=== PATIENT | male | born 1960 | race Caucasian/White ===

== ENCOUNTER 2017-10-04 22:38 | Inpatient (IN) | payer MEDICAID, OTHER ==
[~2017-10-04] VITALS: Ht 180.3 cm; Wt 104.3 kg
[2017-10-04 23:52] LABS: Basophils # (auto) 0.1 uL; Basophils % (auto) 1.4 % (0.0-2.0); Eosinophils # (auto) 0.3 uL; Eosinophils % (auto) 3.7 % (0.0-7.0); Hematocrit 40.3 % (41.0-53.0); Lymphocytes # (auto) 1.6 uL; Lymphocytes % (auto) 18.3 % (10.0-50.0); Mean Corpuscular Hemoglobin 30.6 pg (28.0-32.0); Mean Corpuscular Hgb Conc. 34.7 g/dL (32.0-36.0); Mean Corpuscular Volume 88.1 fL (80.0-100.0); Monocytes # (auto) 0.5 uL; Monocytes % (auto) 5.3 % (0.0-12.0); Neutrophils # (auto) 6.2 uL; Neutrophils % (auto) 71.3 % (37.0-80.0); Nucleated Red Blood Cells % 0.1 %; Platelet Count (auto) 203 10^3/uL (140-450); Red Blood Cells 4.58 10^6/uL (4.5-5.90); Red Cell Distribution Width 13.6 % (11.8-14.3); White Blood Cell 8.7 10^3/uL (4.4-10.8)
[2017-10-05 00:08] LABS: Albumin 3.9 g/dL (3.4-5.0); Calcium 9.1 mg/dL (8.5-10.1); Potassium 3.2 mmol/L (3.5-5.1)
[2017-10-05 00:10] LABS: Bilirubin, Total 0.5 mg/dL (0.2-1.0); Total Protein 7.7 g/dL (6.4-8.2)
[2017-10-05 00:19] LABS: BUN/Creatinine Ratio 15.3
[2017-10-05] MEDS ORDERED: SODIUM CHLORIDE 0.9% 2,000 ML IV ONE (03:15)
[2017-10-05] MEDS ORDERED: InsuLIN REG 1unit/0.01ml Soln (100units/ml) IV ONE (03:15)
[2017-10-05] MEDS ORDERED: MORPHINE SULFATE 4 MG/ML SYR/VIAL IV PRN (04:00)
[2017-10-05] MEDS ORDERED: ACETAMINOPHEN 325 MG TAB PO PRN (04:00)
[2017-10-05] MEDS ORDERED: SODIUM CHLORIDE 0.9% 1,000 ML IV SCH (04:00)
[2017-10-05] MEDS ORDERED: ONDANSETRON HCL 4 MG/2 ML VIAL IV PRN (04:00)
[2017-10-05] MEDS ORDERED: cloNIDine HCL 0.1 MG TAB PO PRN (04:00)
[2017-10-05] MEDS ORDERED: POTASSIUM CHL 20 Meq TABLET PO ONE ×2 (04:00→12:00)
[2017-10-05] MEDS ORDERED: NITROGLYCERIN 0.4 MG SL TAB SL PRN (04:00)
[2017-10-05] MEDS ORDERED: TEMAZEPAM 15 MG CAP PO PRN (04:00)
[2017-10-05] MEDS ORDERED: DEXTROSE (50%) 50ML SYRG IV PRN (04:00)
[2017-10-05] MEDS: ACCU-CHEK COMFORT CURVE STRIP VI SCH ×6 (05:09→23:48)
[2017-10-05] MEDS: InsuLIN REG 1unit/0.01ml Soln (100units/ml) SC SCH ×6 (05:44→23:51)
[2017-10-05 05:50] VITALS: BP 168/97
[2017-10-05] MEDS: HYDROcodone-ACET 5/325MG TAB PO PRN ×2 (06:39→12:52)
[2017-10-05 06:47] LABS: Albumin 3.6 g/dL (3.4-5.0); BUN/Creatinine Ratio 13.2; Bilirubin, Total 0.4 mg/dL (0.2-1.0); Calcium 8.5 mg/dL (8.5-10.1); Total Protein 7.2 g/dL (6.4-8.2)
[2017-10-05 07:06] LABS: Potassium 2.9 mmol/L (3.5-5.1)
[2017-10-05 07:30] VITALS: BP 138/83
[2017-10-05 09:00] VITALS: BP 138/83
[2017-10-05] MEDS ORDERED: PNEUMOCOCCAL VACC POLYS 25 MCG/0.5 ML VIAL IM ONE ×2 (09:45→10:15)
[2017-10-05] MEDS ORDERED: IBUP800T24 PO (10:05)
[2017-10-05] MEDS ORDERED: GABA-339 PO (10:05)
[2017-10-05] MEDS ORDERED: ASPI81CH43 PO (10:05)
[2017-10-05] MEDS ORDERED: INSLANTI SC (10:05)
[2017-10-05] MEDS ORDERED: HYDR-4683 PO (10:05)
[2017-10-05] MEDS ORDERED: INSLISPI SC (10:05)
[2017-10-05] MEDS ORDERED: LOSARTAN POTASSIUM 25 MG TAB PO ONE (12:00)
[2017-10-05] MEDS: ENOXAPARIN SOD 40 MG/0.4 ML SYRINGE SC SCH (12:23)
[2017-10-05 13:00] VITALS: BP 143/83
[2017-10-05] MEDS: GABAPENTIN 300 MG CAP PO SCH ×2 (16:43→21:39)
[2017-10-05 17:00] VITALS: BP 144/80
[2017-10-05 21:03] LABS: Urine Bacteria NONE SEEN /hpf (None Seen); Urine Blood Negative /uL (Negative); Urine Specific Gravity 1.013 (1.001-1.035); Urine WBC <1 /hpf (0 - 3)
[2017-10-05 21:23] LABS: Alcohol, Urine < 3.0 mg/dL (0-5); Amphetamine Screen, Urine POSITIVE (NEGATIVE); Barbiturate Scree,Urine NEGATIVE (NEGATIVE); Benzodiazephine Screen, Urine NEGATIVE (NEGATIVE); Cannabinoid Screen, Urine POSITIVE (NEGATIVE); Cocaine Screen, Urine NEGATIVE (NEGATIVE); Opiate Scree,Urine POSITIVE (NEGATIVE); Phencyclidine Screen, Urine NEGATIVE (NEGATIVE)
[2017-10-05] MEDS: INSULIN LANTUS (GLARGINE) 1 /0.01ml (100units/ml) SC SCH (21:41)
[2017-10-05 22:00] VITALS: BP 124/77
[2017-10-06] MEDS: InsuLIN REG 1unit/0.01ml Soln (100units/ml) SC SCH ×3 (04:00→11:49)
[2017-10-06] MEDS: ACCU-CHEK COMFORT CURVE STRIP VI SCH ×3 (04:15→11:48)
[2017-10-06 05:00] VITALS: BP 134/75
[2017-10-06 05:38] LABS: Basophils # (auto) 0.1 uL; Basophils % (auto) 0.9 % (0.0-2.0); Eosinophils # (auto) 0.6 uL; Eosinophils % (auto) 5.8 % (0.0-7.0); Hematocrit 40.4 % (41.0-53.0); Hemoglobin 14.1 g/dL (13.5-17.5); Lymphocytes # (auto) 2.9 uL; Lymphocytes % (auto) 27.8 % (10.0-50.0); Mean Corpuscular Hemoglobin 30.7 pg (28.0-32.0); Mean Corpuscular Hgb Conc. 34.9 g/dL (32.0-36.0); Monocytes # (auto) 0.7 uL; Monocytes % (auto) 6.7 % (0.0-12.0); Neutrophils # (auto) 6.1 uL; Neutrophils % (auto) 58.8 % (37.0-80.0); Nucleated Red Blood Cells % 0.1 %; Platelet Count (auto) 241 10^3/uL (140-450); Red Blood Cells 4.58 10^6/uL (4.5-5.90); Red Cell Distribution Width 13.7 % (11.8-14.3); White Blood Cell 10.4 10^3/uL (4.4-10.8)
[2017-10-06 05:53] LABS: Potassium 3.2 mmol/L (3.5-5.1)
[2017-10-06 05:57] LABS: Albumin 3.3 g/dL (3.4-5.0); BUN/Creatinine Ratio 14.5; Bilirubin, Total 0.3 mg/dL (0.2-1.0); Calcium 9.1 mg/dL (8.5-10.1); Total Protein 6.5 g/dL (6.4-8.2)
[2017-10-06] MEDS: GABAPENTIN 300 MG CAP PO SCH (06:27)
[2017-10-06] MEDS: INSULIN LANTUS (GLARGINE) 1 /0.01ml (100units/ml) SC SCH (06:30)
[2017-10-06 07:30] VITALS: BP 146/78
[2017-10-06] MEDS ORDERED: LOS25T PO (08:58)
[2017-10-06 09:00] VITALS: BP 146/78
[2017-10-06] MEDS ORDERED: POTASSIUM CHL 20 Meq TABLET PO ONE (09:00)
[2017-10-06] MEDS ORDERED: ASPirin-EC 81 mg tab PO SCH (10:00)
[2017-10-06] MEDS ORDERED: LOSARTAN POTASSIUM 25 MG TAB PO SCH (10:00)
[2017-10-06] MEDS: ENOXAPARIN SOD 40 MG/0.4 ML SYRINGE SC SCH (10:07)
[2017-10-06] MEDS: HYDROcodone-ACET 5/325MG TAB PO PRN (10:26)
[2017-10-06 10:54] VITALS: BP 146/79
[2017-10-06 12:21] VITALS: BP 175/85
== END 2017-10-06 13:40 | disposition home or self-care (01) | DRG 469 ==
LOC: ER 22:38 → TELE 22:39 → TELE-WESTW 10-05 05:50 → WEST WING 10-05 23:57
PROVIDERS: ADMIT Nurse Practitioner; ATTEND Internal Medicine
DX: N17.9 Acute kidney failure, unspecified (principal); E11.40 Type 2 diabetes mellitus with diabetic neuropathy, unspecified; E11.65 Type 2 diabetes mellitus with hyperglycemia; I10 Essential (primary) hypertension; E87.6 Hypokalemia; E87.1 Hypo-osmolality and hyponatremia; E86.0 Dehydration; Z79.4 Long term (current) use of insulin; Z91.19 Patient's noncompliance with other medical treatment and regimen; F15.90 Other stimulant use, unspecified, uncomplicated; F12.90 Cannabis use, unspecified, uncomplicated; E66.9 Obesity, unspecified; Z23 Encounter for immunization
CPT/HCPCS: 36415; 71045; 80053; 80307; 81001; 82010; 82140; 82962; 83036; 84484; 85025; 93005; 96361; 96374; J1815; J2405

== ENCOUNTER 2019-10-20 10:35 | Inpatient (IN) | payer MEDICAID ==
[~2019-10-20] VITALS: Ht 177.8 cm; Wt 110.0 kg
[~2019-10-20 10:35] MED LIST: ASPI81CH43 PO; GABA-339 PO; HYDR-4833 PO; INSLANTI SC; INSLISPI SC; LOS25T PO
[2019-10-20 11:05] LABS: Basophils # (auto) 0.1 10 ^3/uL (0-0.2); Basophils % (auto) 0.7 % (0.0-2.0); Eosinophils # (auto) 0.3 10 ^3/uL (0-0.8); Eosinophils % (auto) 3.1 % (0.0-7.0); Hematocrit 35.1 % (41.0-53.0); Hemoglobin 12.2 g/dL (13.5-17.5); Lymphocytes # (auto) 1.2 10 ^3/uL (0.4-5.4); Lymphocytes % (auto) 10.9 % (10.0-50.0); Mean Corpuscular Hemoglobin 30.9 pg (28.0-32.0); Mean Corpuscular Hgb Conc. 34.7 g/dL (32.0-36.0); Mean Corpuscular Volume 88.8 fL (80.0-100.0); Monocytes # (auto) 0.8 10 ^3/uL (0-1.3); Monocytes % (auto) 7.1 % (0.0-12.0); Neutrophils # (auto) 8.3 10 ^3/uL (1.6-8.6); Neutrophils % (auto) 78.2 % (37.0-80.0); Nucleated Red Blood Cells % 0.1 %; Platelet Count (auto) 150 10^3/uL (140-450); Red Blood Cells 3.95 10^6/uL (4.5-5.90); Red Cell Distribution Width 14.1 % (11.8-14.3); White Blood Cell 10.6 10^3/uL (4.4-10.8)
[2019-10-20 11:20] LABS: INR 0.99 (0.9-1.15); Partial Thromboplastin Time 31.9 sec (23.64-32.05)
[2019-10-20 11:25] LABS: Albumin 3.1 g/dL (3.4-5.0); Calcium 7.9 mg/dL (8.5-10.1); Potassium 3.7 mmol/L (3.5-5.1)
[2019-10-20] MEDS ORDERED: ASPirin 81 mg TAB PO ONE (11:30)
[2019-10-20] MEDS ORDERED: cefTRIAXone W LIDOCAINE 1 GM IM IM ONE (11:30)
[2019-10-20 11:31] LABS: Bilirubin, Total 0.6 mg/dL (0.2-1.0); Total Protein 6.8 g/dL (6.4-8.2)
[2019-10-20] MEDS ORDERED: cefTRIAXone 1GM/50ML D5W 50 ML IV ONE (11:45)
[2019-10-20] MEDS ORDERED: ENOXAPARIN SOD 100 MG/1 ML SYRINGE SC ONE (13:00)
[2019-10-20] MEDS ORDERED: ASCORBIC ACID 500 MG TAB PO ONE (13:00)
[2019-10-20] MEDS ORDERED: ZINC SULFATE 220mg CAP or TAB PO ONE (13:00)
[2019-10-20] MEDS ORDERED: ACETAMINOPHEN 325 MG TAB PO ONE ×2 (13:18→13:30)
[2019-10-20 14:10] LABS: Urine Bacteria NONE SEEN /hpf (None Seen); Urine Blood 1+ /uL (Negative); Urine WBC <1 /hpf (0 - 3)
[2019-10-20] MEDS ORDERED: PROMETHAZINE HCL 25 MG/ML 1ML IV PRN (14:30)
[2019-10-20] MEDS ORDERED: LACTULOSE 20Gm/30ML SOLN PO PRN ×2 (14:30)
[2019-10-20] MEDS ORDERED: ALBUTEROL SULF 2.5 MG/0.5ML(0.5%) NEB SOLN NEB PRN (14:30)
[2019-10-20] MEDS ORDERED: NITROGLYCERIN 0.4 MG SL TAB SL PRN (14:30)
[2019-10-20] MEDS ORDERED: MORPHINE SULF INJ 2 MG/ML SYRINGE 1ML IV PRN (14:30)
[2019-10-20] MEDS ORDERED: TEMAZEPAM 15 MG CAP PO PRN (14:30)
[2019-10-20 14:45] VITALS: BP 162/90
--- NOTE | 2019-10-20 14:45 | NUR ---
Respiratory note: PT IS AWAKE, ALERT, AND ORIENTED. NO RESPIRATORY DISTRESS NOTED. SPO2 99% ON 2L NC, HR 84, RR 20, BP 162/90, BS CLEAR/DIMINISHED BILATERALLY. PRN MEDNEB TX NOT INDICATED AT THIS TIME. PT INFORMED TO PUSH CALL BUTTON, OR INFORM RN IF INCREASED WOB, SOB, WHEEZING OCCURS.
[2019-10-20 15:04] LABS: Alcohol, Urine < 3.0 mg/dL (0-5); Amphetamine Screen, Urine NEGATIVE (NEGATIVE); Barbiturate Scree,Urine NEGATIVE (NEGATIVE); Benzodiazephine Screen, Urine NEGATIVE (NEGATIVE); Cannabinoid Screen, Urine NEGATIVE (NEGATIVE); Cocaine Screen, Urine NEGATIVE (NEGATIVE); Opiate Scree,Urine NEGATIVE (NEGATIVE); Phencyclidine Screen, Urine NEGATIVE (NEGATIVE)
--- NOTE | 2019-10-20 16:00 | NUR ---
Telemetry admit from ER KOTACHELSI admitted to Telemetry unit after SBAR received. Patient oriented to LORRIE DAY RN primary RN, unit, room, bed, and unit policies regarding patient care and visiting hours. Patient now on continuous telemetry monitoring, tele box # 61 and telemetry reading on arrival to unit is SR. Patient placed on bedside oxygen, weighed by bedscale and encouraged to call if they need something. All questions and concerns addressed, patient verbalized understanding.
--- NOTE | 2019-10-20 16:46 | NUR ---
PAGED RE: PENDING CT ANGIO OF CHEST WITH CONTRAST. PER RADIOLOGY THE PATIENTS RENAL LABS ARE NOT AT THE CORRECT LEVEL FOR THE TEST TO BE COMPLETED. RADIOLOGY WAS ASKING IF THE MD WOULD LIKE TO CONTINUE MD TRUJILLO'S TREATMENT OF HYDRATING THE PATIENT AND THE REDRAWING THE LABS. AWAITING CALL BACK
[2019-10-20 17:00] VITALS: BP 159/93
[2019-10-20] MEDS: FUROSEMIDE 20 MG/2 ML VIAL IV SCH (17:05)
--- NOTE | 2019-10-20 19:00 | NUR ---
PT ASSESSED, NO SOB NOTED. BS DIMINISHED BILATERALLY, PT KNOWS ABOUT PRN TX IF NEEDED
--- NOTE | 2019-10-20 19:52 | NUR ---
pt c/o of pain at posterior right shoulder, radiating to his chest. EKG performed. abnormal result found (PVCS). Will present result to hospitalist Lv for verification and further orders.
--- NOTE | 2019-10-20 20:02 | NUR ---
hospitalist orders hospitalist informed of abnormal EKG and HTN 177/78, NEW ORDERS RECEIVED. --hydralazine PO 50 mg PRN TID for SBP >160. orders received read back and verified.
[2019-10-20] MEDS: traMADol HCL 50 MG TAB PO PRN (20:15)
[2019-10-20] MEDS ORDERED: hydrALAZINE HCL 25 MG TAB PO PRN (20:30)
[2019-10-20 21:56] VITALS: BP 158/75
--- NOTE | 2019-10-20 22:13 | NUR ---
hospitalist RIGOBERTO new orders received for more effective pain medication. morphine sulfate 2mg IV Q4 prn. orders read back and verified.
--- NOTE | 2019-10-20 22:13 | NUR ---
Hospitalist (Lv) informed Dr. Awan of pts history of diabetes. new orders received --insulin moderate sliding scale Q4 accuchecks. orders read back and verified.
[2019-10-20] MEDS ORDERED: DEXTROSE (50%) 50ML SYRG IV PRN (22:15)
[2019-10-20] MEDS: CARVEDILOL 3.125 MG TAB PO SCH (22:18)
[2019-10-20] MEDS: ATORVASTATIN 20 MG TAB PO SCH (22:19)
[2019-10-20] MEDS: ENOXAPARIN SOD 100 MG/1 ML SYRINGE SC SCH (22:19)
[2019-10-21] MEDS: ACCU-CHEK COMFORT CURVE STRIP VI SCH ×7 (00:25→21:38)
[2019-10-21] MEDS: InsuLIN REG 1unit/0.01ml Soln (100units/ml) SC SCH ×6 (00:26→21:37)
[2019-10-21] MEDS: MORPHINE SULF INJ 2 MG/ML SYRINGE 1ML IV PRN ×3 (03:52→21:31)
[2019-10-21] MEDS: FUROSEMIDE 20 MG/2 ML VIAL IV SCH ×2 (05:23→17:35)
[2019-10-21 05:39] VITALS: BP 147/73
--- NOTE | 2019-10-21 06:15 | NUR ---
PAIN pt c/o pain at posterior right shoulder, 04/11, pt will be medicated appropriately. Addendum: 10/21/19 at 0617 by Sweetie Telles RN note should be time stamped for 0614
--- NOTE | 2019-10-21 06:21 | NUR ---
Respiratory note: PT FOUND ON 3 LPM NC. DECREASED TO 2 LPM. PT TOLERATED WELL. SP02 AFTER CHANGE 98%. PT AWAKE ALERT AND RESPONSIVE. B/S ARE DIMINISHED. NO TREATMENT INDICATED AT THIS TIME.
[2019-10-21 06:40] LABS: Albumin 2.8 g/dL (3.4-5.0); Potassium 3.6 mmol/L (3.5-5.1)
[2019-10-21 06:43] LABS: BUN/Creatinine Ratio 18.7; Bilirubin, Total 0.5 mg/dL (0.2-1.0); Total Protein 6.2 g/dL (6.4-8.2)
--- NOTE | 2019-10-21 06:56 | NUR ---
closing note pt resting in left lateral position with eyes closed. respirations even and nonlabored on 2 liters ns. bed in low locked postion, call light within reach.
--- NOTE | 2019-10-21 07:30 | NUR ---
OPENING NOTE ASSUMED CARE OF PT. AWAKE AND ALERT. NO S/S OF SOB/DISTRESS. BED SET TO LOWEST POSITION/LOCKED. RAILS UP X2. CALL LIGHT WITHIN REACH. WILL CONTINUE TO MONITOR Q1HR AND PRN.
[2019-10-21] MEDS ORDERED: ADENOSINE 90 MG in GIVE UN-DILUTED 0 ML IV STA (08:21)
[2019-10-21] MEDS: ACETAMINOPHEN 500 MG TAB PO PRN ×2 (08:39→21:31)
[2019-10-21 09:00] VITALS: BP 139/64
--- NOTE | 2019-10-21 10:15 | NUR ---
Assumed care of patient. Verbal report received from JEANNETTE Smith. Patient is currently off the floor to Radiology for Adenosine stress test.
[2019-10-21 10:34] VITALS: BP 141/78
--- NOTE | 2019-10-21 11:05 | NUR ---
Returned from radiology via wheelchair. Patient is awake, alert and oriented X. No signs or symptoms of discomfort, shortness of breath, patient complains of low back pain, 8/10. Informed will medicate with prescribed pain medication, verbalized understanding. Tele# 61, sinus rhythm @ 81 bpm. IV X2, right forearm and right right hand, both 20 gauge, patent and saline locked. Plan of care discussed with patient, verbalized understanding. Bed locked, in lowest position, call light within reach, will continue to monitor Q 1 hour and PRN.
[2019-10-21] MEDS ORDERED: MAGNESIUM SULFATE 1GM/100ML 100 ML IV ONE ×2 (12:00→12:15)
[2019-10-21] MEDS ORDERED: FUROSEMIDE 20 MG/2 ML VIAL IV ONE (12:00)
[2019-10-21] MEDS: NICOTINE 14 MG/24HR TOPICAL PATCH TD ONE ×2 (12:00→13:25)
--- NOTE | 2019-10-21 12:00 | NUR ---
CARDIOLOGY Brian Alfredo at bedside Cardiology consult. New orders received and followed through. Patient updated on plan of care, verbalized understanding.
--- NOTE | 2019-10-21 12:15 | NUR ---
ROUNDS Dr Mahoney at bedside for rounds, new orders received and followed through. Patient updated on plan of care, verbalized understanding.
[2019-10-21 12:26] LABS: Cholesterol 111 mg/dL (< 200); Triglycerides 143 mg/dL (< 150)
[2019-10-21 12:28] LABS: HDL Cholesterol 25 mg/dL (40-59); LDL Cholesterol 62 mg/dL (< 100)
[2019-10-21] MEDS: ASPirin 81 mg TAB PO SCH (12:57)
[2019-10-21] MEDS: levoFLOXacin 500MG 100 ML IV SCH (12:57)
[2019-10-21] MEDS: CARVEDILOL 3.125 MG TAB PO SCH ×2 (12:58→21:32)
[2019-10-21] MEDS: POTASSIUM CHL 20 Meq TABLET PO SCH (12:58)
[2019-10-21] MEDS: ENOXAPARIN SOD 100 MG/1 ML SYRINGE SC SCH ×2 (12:59→21:30)
[2019-10-21] MEDS: ENALAPRIL MALEATE 2.5 MG TAB PO SCH (12:59)
[2019-10-21 13:00] VITALS: BP 144/86
[2019-10-21] MEDS: NITROGLYCERIN 0.2MG/HR TOPICAL PATCH TD SCH (13:00)
[2019-10-21 14:26] LABS: Free T3 3.25 pg/mL (2.3-4.2); Free T4 (Free Thyroxine) 1.06 ng/dL (0.89-1.76)
[2019-10-21] MEDS ORDERED: INSU1INJ19 SC (15:51)
[2019-10-21] MEDS ORDERED: DOXA1TAB50 PO (15:52)
[2019-10-21] MEDS ORDERED: IBUP800T24 PO (15:52)
[2019-10-21] MEDS ORDERED: AMIT50TA3 PO (15:53)
[2019-10-21] MEDS ORDERED: HYDR25TA4 PO (15:53)
[2019-10-21] MEDS ORDERED: ALOG1TAB2 PO (15:55)
[2019-10-21] MEDS ORDERED: ATOR20TA50 PO (15:56)
[2019-10-21 17:00] VITALS: BP 156/76
[2019-10-21] MEDS: Glucerna Carbsteady SHAKE Vanilla 8oz PO SCH (17:35)
[2019-10-21] MEDS: traMADol HCL 50 MG TAB PO PRN (17:56)
[2019-10-21] MEDS ORDERED: FUROSEMIDE 40 MG/4 ML VIAL IV SCH (18:00)
--- NOTE | 2019-10-21 19:25 | NUR ---
Care endorsed to JEANNETTE Castillo, night nurse.
--- NOTE | 2019-10-21 20:25 | NUR ---
Opening Shift Note Assumed care of patient from Josefina MACHADO. Patient sleeping, arousable to name. No S/S of distress/SOB or pain. Instructed on POC and to call for assist PRN. Call light in reach, bed in lowest position and locked, will continue to monitor for changes Q1hr and PRN. Addendum: 10/21/19 at 2027 by QUINN PICKENS RN RN Amend time for 1929
[2019-10-21] MEDS: ATORVASTATIN 20 MG TAB PO SCH (21:31)
[2019-10-21 21:59] VITALS: BP 142/61
--- NOTE | 2019-10-22 04:43 | NUR ---
RT NOTE: PT ASSESSED FOR PRN TX. B/S DIMINISHED. PT ON RA. SP02 96%, HR 70. NO SOB OR DISTRESS NOTED. NO TX INDICATED.
[2019-10-22 05:19] VITALS: BP 125/64
[2019-10-22] MEDS: FUROSEMIDE 20 MG/2 ML VIAL IV SCH ×2 (06:08→17:33)
[2019-10-22] MEDS: ACCU-CHEK COMFORT CURVE STRIP VI SCH ×4 (06:15→21:38)
[2019-10-22] MEDS: InsuLIN REG 1unit/0.01ml Soln (100units/ml) SC SCH ×4 (06:15→21:53)
[2019-10-22 06:27] LABS: Basophils # (auto) 0 10 ^3/uL (0-0.2); Basophils % (auto) 0.6 % (0.0-2.0); Eosinophils # (auto) 0.5 10 ^3/uL (0-0.8); Eosinophils % (auto) 6.5 % (0.0-7.0); Hematocrit 32.8 % (41.0-53.0); Hemoglobin 11.8 g/dL (13.5-17.5); Lymphocytes % (auto) 25.9 % (10.0-50.0); Mean Corpuscular Hemoglobin 31.4 pg (28.0-32.0); Mean Corpuscular Hgb Conc. 36.1 g/dL (32.0-36.0); Mean Corpuscular Volume 87.1 fL (80.0-100.0); Monocytes # (auto) 0.9 10 ^3/uL (0-1.3); Monocytes % (auto) 11.1 % (0.0-12.0); Neutrophils # (auto) 4.3 10 ^3/uL (1.6-8.6); Neutrophils % (auto) 55.9 % (37.0-80.0); Nucleated Red Blood Cells % 0.1 %; Platelet Count (auto) 159 10^3/uL (140-450); Red Blood Cells 3.76 10^6/uL (4.5-5.90); Red Cell Distribution Width 13.3 % (11.8-14.3); White Blood Cell 7.7 10^3/uL (4.4-10.8)
[2019-10-22 06:38] LABS: Potassium 3.7 mmol/L (3.5-5.1)
[2019-10-22 06:51] LABS: BUN/Creatinine Ratio 19.8; Calcium 8.3 mg/dL (8.5-10.1)
--- NOTE | 2019-10-22 07:26 | NUR ---
Care endorsed to day shift Josefina MACHADO
--- NOTE | 2019-10-22 08:00 | NUR ---
Opening Shift Note Assumed care of patient, awake, alert and oriented. No S/S of distress/SOB or pain. Instructed on POC and to call for assist PRN,. Bed locked, in lowest position, call light within reach. Will continue to monitor for changes Q1hr and PRN.
[2019-10-22] MEDS: MORPHINE SULF INJ 2 MG/ML SYRINGE 1ML IV PRN ×2 (09:00→21:40)
--- NOTE | 2019-10-22 09:00 | NUR ---
Patient complaining of pain 8/10 on pain scale. Gave morphine 2mg. Will continue to monitor.
[2019-10-22] MEDS: Glucerna Carbsteady SHAKE Vanilla 8oz PO SCH ×3 (09:03→17:33)
[2019-10-22 09:07] VITALS: BP 130/76
[2019-10-22] MEDS: NICOTINE 14 MG/24HR TOPICAL PATCH TD SCH (10:00)
[2019-10-22] MEDS: NITROGLYCERIN 0.2MG/HR TOPICAL PATCH TD SCH (10:00)
[2019-10-22] MEDS: POTASSIUM CHL 20 Meq TABLET PO SCH (10:44)
[2019-10-22] MEDS: ASPirin 81 mg TAB PO SCH (10:44)
[2019-10-22] MEDS: ENOXAPARIN SOD 100 MG/1 ML SYRINGE SC SCH ×2 (10:45→21:38)
[2019-10-22] MEDS: CARVEDILOL 3.125 MG TAB PO SCH ×2 (10:45→21:37)
[2019-10-22] MEDS: levoFLOXacin 500MG 100 ML IV SCH (10:46)
[2019-10-22] MEDS: ENALAPRIL MALEATE 2.5 MG TAB PO SCH (11:02)
[2019-10-22] MEDS ORDERED: FUROSEMIDE 20 MG/2 ML VIAL IV ONE (12:30)
[2019-10-22 13:26] VITALS: BP 110/60
--- NOTE | 2019-10-22 15:30 | NUR ---
[employer] Brian with [employer] at bedside discussing [employer]ST.
[2019-10-22 16:35] VITALS: BP 129/74
--- NOTE | 2019-10-22 16:59 | NUR ---
ROUNDS Dr Tom at bedside for rounds. No new orders received at this time. Plan of care discussed with patient, verbalized understanding.
--- NOTE | 2019-10-22 19:05 | NUR ---
Care endorsed to JEANNETTE Castillo, night nurse.
--- NOTE | 2019-10-22 19:15 | NUR ---
Opening Shift Note Assumed care of patient, awake and alert. No S/S of distress/SOB or pain. Instructed on POC and to call for assist PRN. Call light in reach, bed in lowest position, wheels locked. Will continue to monitor for changes Q1hr and PRN.
[2019-10-22] MEDS: ATORVASTATIN 20 MG TAB PO SCH (21:37)
[2019-10-22 21:45] VITALS: BP 140/66
--- NOTE | 2019-10-22 21:45 | NUR ---
Airconditioning Drafting Officer from [employer] vest at bedside fitting patient for vest.
[2019-10-22] MEDS ORDERED: DEXTROSE (50%) 50ML SYRG IV PRN (23:00)
--- NOTE | 2019-10-22 23:06 | NUR ---
Patient refusing to wear zoll vest, educated on risks. Rhythm on telemetry is SR. No s/s of distress noted. Will continue to monitor.
[2019-10-23 04:41] VITALS: BP 145/67
[2019-10-23] MEDS: FUROSEMIDE 20 MG/2 ML VIAL IV SCH (06:04)
[2019-10-23] MEDS: ACCU-CHEK COMFORT CURVE STRIP VI SCH ×4 (06:17→22:05)
[2019-10-23] MEDS: InsuLIN REG 1unit/0.01ml Soln (100units/ml) SC SCH ×4 (06:17→22:27)
[2019-10-23 06:40] LABS: BUN/Creatinine Ratio 22.1; Calcium 8.6 mg/dL (8.5-10.1); Magnesium 1.6 mg/dL (1.6-2.6); Potassium 3.8 mmol/L (3.5-5.1)
--- NOTE | 2019-10-23 07:08 | NUR ---
Care endorsed to day shift Josefina MACHADO
[2019-10-23] MEDS: Glucerna Carbsteady SHAKE Vanilla 8oz PO SCH ×3 (07:42→17:41)
--- NOTE | 2019-10-23 08:00 | NUR ---
Opening Shift Note Assumed care of patient. Patient is awake, alert and oriented X4. No signs or symptoms of discomfort, shortness of breath, patient complains of low back pain, /. Informed will medicate with prescribed pain medication, verbalized understanding. Tele# 61, sinus rhythm @77 bpm. IV X2, right forearm and right right hand, both 20 gauge, patent and saline locked. Educated patient on importance of wearing ZOLL Life Vest, verbalized he couldn't wear it because he has "too much goop" on his chest which caused the Zoll Vest to "beep" all night so he took it off. Verbalized he will clean his chest once he wakes up more and will attempt to wear the Zoll Vest. Plan of care discussed with patient, verbalized understanding. Bed locked, in lowest position, call light within reach, will continue to monitor Q 1 hour and PRN.
[2019-10-23 09:00] VITALS: BP 152/71
[2019-10-23] MEDS: NICOTINE 14 MG/24HR TOPICAL PATCH TD SCH (10:00)
[2019-10-23] MEDS ORDERED: FAMOTIDINE 20 MG TAB PO SCH (10:00)
[2019-10-23] MEDS: ASPirin 81 mg TAB PO SCH (10:20)
[2019-10-23] MEDS: CARVEDILOL 3.125 MG TAB PO SCH ×2 (10:20→21:48)
[2019-10-23] MEDS: ENOXAPARIN SOD 100 MG/1 ML SYRINGE SC SCH (10:21)
[2019-10-23] MEDS: POTASSIUM CHL 20 Meq TABLET PO SCH (10:21)
[2019-10-23] MEDS ORDERED: MAGNESIUM SULFATE 1GM/100ML 100 ML IV ONE (10:45)
--- NOTE | 2019-10-23 12:14 | NUR ---
ZO[employer] VEST Patient continues to refuse to wear his ZOL Life Vest at bedside, verbalizing "I want to wait until I talk to the doctor", despite education for reason for need. Will notify Brian Alfredo.
--- NOTE | 2019-10-23 12:35 | NUR ---
ROUNDS Dr Tom at bedside for rounds, new orders received and followed through. Patient updated on plan of care, verbalized understanding.
[2019-10-23 12:48] VITALS: BP 149/78
--- NOTE | 2019-10-23 13:00 | NUR ---
PT DECLINED P.T. TODAY.
[2019-10-23 17:00] VITALS: BP 131/83
[2019-10-23] MEDS ORDERED: FUROSEMIDE 100 MG/10ML VIAL IV SCH (18:00)
--- NOTE | 2019-10-23 19:18 | NUR ---
Care endorsed to JEANNETTE Carreon, night nurse.
--- NOTE | 2019-10-23 19:35 | NUR ---
Opening Shift Note Assumed care of patient, awake and alert. No S/S of distress/SOB or pain. Instructed and to call for assist PRN, patient verbalized understanding. Safety measures ensured, call light within reach, will continue to monitor for changes Q1hr and PRN.
--- NOTE | 2019-10-23 20:30 | NUR ---
IV on right hand accidentally pulled out. Removed with catheter intact, patient tolerated well
--- NOTE | 2019-10-23 21:30 | NUR ---
Instructed patient to wear the Zoll Vest and explained the importance of it. Patient refused at this time and stated, "I want to talk to the doctor first tomorrow." Patient's rhythm is SR and no complains of chest pain at this time, will continue to monitor
[2019-10-23] MEDS: ATORVASTATIN 20 MG TAB PO SCH (21:48)
[2019-10-23] MEDS: SACUBITRIL-VALSARTAN 24mg/26mg TAB PO SCH (21:48)
[2019-10-23 21:54] VITALS: BP 146/71
[2019-10-23] MEDS: MORPHINE SULF INJ 2 MG/ML SYRINGE 1ML IV PRN (21:59)
--- NOTE | 2019-10-23 22:00 | NUR ---
Determined the need to change the IV at this time, IV site is red and leaking. Patient refused to be reinserted with new IV despite explaining the reason for it. Will try to convince again later.
[2019-10-24 04:51] VITALS: BP 163/82
[2019-10-24] MEDS: InsuLIN REG 1unit/0.01ml Soln (100units/ml) SC SCH ×4 (06:05→22:19)
[2019-10-24] MEDS: ACCU-CHEK COMFORT CURVE STRIP VI SCH ×4 (06:05→22:19)
[2019-10-24 06:15] LABS: BUN/Creatinine Ratio 23.7; Calcium 8.5 mg/dL (8.5-10.1); Potassium 4.2 mmol/L (3.5-5.1)
[2019-10-24 06:30] VITALS: BP 127/73
[2019-10-24] MEDS: Glucerna Carbsteady SHAKE Vanilla 8oz PO SCH ×3 (08:00→17:38)
[2019-10-24 08:54] VITALS: BP 135/74
[2019-10-24] MEDS: POTASSIUM CHL 20 Meq TABLET PO SCH (09:46)
[2019-10-24] MEDS: FUROSEMIDE 40 MG TAB PO SCH (09:46)
[2019-10-24] MEDS: SACUBITRIL-VALSARTAN 24mg/26mg TAB PO SCH ×2 (09:47→22:14)
[2019-10-24] MEDS: FAMOTIDINE 20 MG TAB PO SCH (09:47)
[2019-10-24] MEDS: ASPirin 81 mg TAB PO SCH (09:47)
[2019-10-24] MEDS: NICOTINE 14 MG/24HR TOPICAL PATCH TD SCH (09:48)
[2019-10-24] MEDS: CARVEDILOL 3.125 MG TAB PO SCH ×2 (09:48→22:16)
[2019-10-24] MEDS: ENOXAPARIN SOD 100 MG/1 ML SYRINGE SC SCH (09:49)
--- NOTE | 2019-10-24 12:16 | NUR ---
Doctor Shaikh fernandez.
[2019-10-24 13:00] VITALS: BP 135/74
--- NOTE | 2019-10-24 13:10 | NUR ---
Pt declined PM PT tx. Addendum: 10/24/19 at 1530 by José Miguel Collins CONTROLS DESIGN ENGINEER Amended: Links added.
--- NOTE | 2019-10-24 16:29 | NUR ---
Assessment Patient is a 59-year-old male who is alert and oriented. Prior to admission patient lived home with his ex-mother in law and functioned independently. Patient informed me he does not need any medical equipment now. Patient informed me he can care for her own ADLs. Per patient he will return home to her prior living arrangements post discharge and family will transport him home. Advised patient there is a Social Service order for Home Health Safety evaluation, medication management and vitals. Informed Patient he has the right to participate in all discharge planning. Patient verbalized understanding and agrees to discharge plan. Faxed clinical information to [facility] requesting authorization for [facility] and [facility]. Per Danuta with [facility] patient has been accepted and service to start within 24-48hrs upon d/c day. Per Suzanne with [facility] authorization for home health is [id number]. Addendum: 10/24/19 at 1630 by ALON FARLEY Amended: Links added.
[2019-10-24 17:00] VITALS: BP 149/75
[2019-10-24 22:07] VITALS: BP 152/76
[2019-10-24] MEDS: ATORVASTATIN 20 MG TAB PO SCH (22:14)
--- NOTE | 2019-10-25 03:49 | NUR ---
CARE ENDORSED TO KEITH Alexandre
[2019-10-25 05:33] VITALS: BP 139/82
[2019-10-25] MEDS: InsuLIN REG 1unit/0.01ml Soln (100units/ml) SC SCH ×3 (07:16→17:03)
[2019-10-25] MEDS: ACCU-CHEK COMFORT CURVE STRIP VI SCH ×3 (07:17→17:03)
[2019-10-25] MEDS: Glucerna Carbsteady SHAKE Vanilla 8oz PO SCH ×2 (08:00→12:00)
[2019-10-25 08:39] LABS: Calcium 8.6 mg/dL (8.5-10.1); Potassium 4.4 mmol/L (3.5-5.1)
[2019-10-25 08:41] LABS: BUN/Creatinine Ratio 26.3
[2019-10-25 09:00] VITALS: BP 149/63
[2019-10-25] MEDS: NICOTINE 14 MG/24HR TOPICAL PATCH TD SCH (10:00)
[2019-10-25] MEDS: FUROSEMIDE 40 MG TAB PO SCH (10:15)
[2019-10-25] MEDS: FAMOTIDINE 20 MG TAB PO SCH (10:15)
[2019-10-25] MEDS: SACUBITRIL-VALSARTAN 24mg/26mg TAB PO SCH (10:15)
[2019-10-25] MEDS: ENOXAPARIN SOD 100 MG/1 ML SYRINGE SC SCH (10:15)
[2019-10-25] MEDS: ASPirin 81 mg TAB PO SCH (10:15)
[2019-10-25] MEDS: CARVEDILOL 3.125 MG TAB PO SCH (10:15)
--- NOTE | 2019-10-25 10:15 | NUR ---
Pt refused PT tx. He stated "I'm fixin' to walk out of here." Pt c/o bilateral 2nd toe pain that is chronic R>L. He did not quantify the pain level. He then showed this MACHINE FILLER SHREDDER where he had pulled off a strip of the plantar aspect of his Right 2nd toe causing a wound that was approximately 0.25 x 0.75 inches and it was slowly oozing blood. RN informed. Addendum: 10/25/19 at 1126 by José Miguel Collins MACHINE FILLER SHREDDER Amended: Links added.
[2019-10-25] MEDS ORDERED: CAR3125T PO (11:40)
[2019-10-25] MEDS ORDERED: SACU1TAB PO (11:40)
[2019-10-25] MEDS ORDERED: FURO40TA4 PO (11:40)
[2019-10-25 13:00] VITALS: BP 144/88
--- NOTE | 2019-10-25 13:19 | NUR ---
PT ASKS WHEN HE WILL BE GOING HOME. PREFERS TO REMAIN WITH NO SOCKS ON HIS FEET. RT FOOT SECOND TOE HAS A SMALL ROUND SPOT WITH DRIED BLOOD. ASKED PT IF HE WOULD LIKE FOR A FOOT DOCTOR TO TAKE A LOOK AT HIS FEET AND HE DECLINES EXPRESSING DESIRE TO DC HOME. DISCUSSED KIDNEY FUNCTION AND ELEVATED FSBS TO BE COVERED WITH INSULIN. AWAITING NEPHROLOGY CONSULT. DECLINED NICOTINE PATCH EARLIER STATING HE HAS NO DESIRE TO SMOKE.
--- NOTE | 2019-10-25 14:16 | NUR ---
URINE SPECIMEN CUP PROVIDED.
--- NOTE | 2019-10-25 15:00 | NUR ---
ASSUMED CARE ASSUMED CARE OF PATIENT AFTER RECEIVING REPORT. PATIENT ORIENTED TO THIS RN AND UPDATED ON POC. WILL CONTINUE TO MONITOR.
--- NOTE | 2019-10-25 15:29 | NUR ---
REPORT OFF TO BERYL MACHADO.
--- NOTE | 2019-10-25 15:38 | NUR ---
URINE SAMPLE CLEAN CATCH URINE SAMPLE PROVIDED BY THE PATIENT. SPECIMEN SENT TO LAB.
[2019-10-25 16:25] LABS: Protein, Urine 78.7 mg/dL (0.0-11.9)
[2019-10-25 16:26] VITALS: BP 124/62
--- NOTE | 2019-10-25 17:54 | NUR ---
AMA Note CHELSI ESCUDERO states they want to leave the hospital Against Medical Advice (AMA). Patient encouraged to stay for further treatment/stabilization. Page out to MD to notify of patient's departure. Patient advised of the risks and benefits of leaving AMA. Patient verbalized understanding. Patient encouraged to return to the ER if symptoms do not improve or worsen.
--- NOTE | 2019-10-25 18:11 | NUR ---
AMA DR RAMOS MADE AWARE OF PATIENT LEAVING RANDALIA.
== END 2019-10-25 18:00 | disposition left against medical advice (07) | DRG 194 ==
LOC: ER 10:35 → TELE 10:36 → TELE-WESTW 16:00
PROVIDERS: ADMIT Internal Medicine; ATTEND Internal Medicine
DX: I13.0 Hypertensive heart and chronic kidney disease with heart failure and stage 1 through stage 4 chronic kidney disease, or unspecified chronic kidney disease (principal); I21.A1 Myocardial infarction type 2; N17.0 Acute kidney failure with tubular necrosis; I50.43 Acute on chronic combined systolic (congestive) and diastolic (congestive) heart failure; J81.1 Chronic pulmonary edema; E44.0 Moderate protein-calorie malnutrition; E11.22 Type 2 diabetes mellitus with diabetic chronic kidney disease; I42.0 Dilated cardiomyopathy; E66.01 Morbid (severe) obesity due to excess calories; E83.42 Hypomagnesemia; N18.3 Chronic kidney disease, stage 3 (moderate); E78.5 Hyperlipidemia, unspecified; E11.40 Type 2 diabetes mellitus with diabetic neuropathy, unspecified; D63.8 Anemia in other chronic diseases classified elsewhere; Z96.642 Presence of left artificial hip joint; I25.10 Atherosclerotic heart disease of native coronary artery without angina pectoris; E03.9 Hypothyroidism, unspecified; Z83.3 Family history of diabetes mellitus; F12.90 Cannabis use, unspecified, uncomplicated; Z72.0 Tobacco use; Z79.4 Long term (current) use of insulin; Z68.34 Body mass index [BMI] 34.0-34.9, adult; Z82.49 Family history of ischemic heart disease and other diseases of the circulatory system; Z53.29 Procedure and treatment not carried out because of patient's decision for other reasons
CPT/HCPCS: 36415; 71045; 71046; 76775; 80048; 80053; 80061; 80307; 81001; 82533; 82550; 82570; 82728; 82962; 83036; 83735; 83880; 84156; 84300; 84439; 84443; 84481; 84484; 85025; 85610; 85730; 87804; 87880; 93005; 93017; 93306; 96365; 96372; 97110; 97116; 97163; 97530; G0378; J0153; J0696; J1815; J1956

== ENCOUNTER 2020-03-20 15:24 | Inpatient (IN) | payer MEDICAID ==
[~2020-03-20] VITALS: Ht 180.3 cm; Wt 93.5 kg
[~2020-03-20 15:24] MED LIST changes: +ALOG1TAB2 PO; +AMIT50TA3 PO; +ATOR20TA50 PO; +CAR3125T PO; +DOXA1TAB50 PO; +FURO40TA4 PO; -HYDR-4833 PO; +HYDR25TA4 PO; +IBUP800T24 PO; -INSLANTI SC; +INSU1INJ19 SC; +SACU1TAB PO
[2020-03-20] MEDS ORDERED: SODIUM CHLORIDE 0.9% 1,000 ML IV ONE ×3 (15:48→18:00)
[2020-03-20] MEDS ORDERED: InsuLIN REG 1unit/0.01ml Soln (100units/ml) IV ONE (16:00)
[2020-03-20 16:02] LABS: Basophils # (auto) 0.1 10 ^3/uL (0-0.2); Basophils % (auto) 0.5 % (0.0-2.0); Eosinophils # (auto) 0.3 10 ^3/uL (0-0.8); Eosinophils % (auto) 2.9 % (0.0-7.0); Hematocrit 37.3 % (41.0-53.0); Hemoglobin 12.9 g/dL (13.5-17.5); Lymphocytes # (auto) 1.9 10 ^3/uL (0.4-5.4); Lymphocytes % (auto) 18.7 % (10.0-50.0); Mean Corpuscular Hemoglobin 30.9 pg (28.0-32.0); Mean Corpuscular Hgb Conc. 34.6 g/dL (32.0-36.0); Mean Corpuscular Volume 89.3 fL (80.0-100.0); Monocytes # (auto) 0.6 10 ^3/uL (0-1.3); Monocytes % (auto) 5.7 % (0.0-12.0); Neutrophils # (auto) 7.2 10 ^3/uL (1.6-8.6); Neutrophils % (auto) 72.2 % (37.0-80.0); Platelet Count (auto) 192 10^3/uL (140-450); Red Blood Cells 4.18 10^6/uL (4.5-5.90); Red Cell Distribution Width 13.3 % (11.8-14.3); White Blood Cell 9.9 10^3/uL (4.4-10.8)
[2020-03-20 16:24] LABS: Albumin 3.1 g/dL (3.4-5.0); Calcium 8.2 mg/dL (8.5-10.1); Potassium 3.3 mmol/L (3.5-5.1)
[2020-03-20 16:33] LABS: BUN/Creatinine Ratio 7.7; Bilirubin, Total 0.4 mg/dL (0.2-1.0); Total Protein 6.4 g/dL (6.4-8.2)
[2020-03-20] MEDS ORDERED: ENOXAPARIN SOD 100 MG/1 ML SYRINGE SC ONE (17:15)
[2020-03-20] MEDS ORDERED: cloNIDine HCL 0.1 MG TAB PO ONE (17:45)
[2020-03-20] MEDS ORDERED: MORPHINE SULF INJ 2 MG/ML SYRINGE 1ML IV PRN (18:00)
[2020-03-20] MEDS ORDERED: ACETAMINOPHEN 325 MG TAB PO ONE (18:00)
[2020-03-20] MEDS ORDERED: ASPirin 81 mg TAB PO ONE (18:00)
[2020-03-20] MEDS ORDERED: hydrALAZINE HCL 20 MG/ML VL IV PRN (18:00)
[2020-03-20] MEDS ORDERED: ONDANSETRON HCL 4 MG/2 ML VIAL IM PRN (18:00)
[2020-03-20 20:03] LABS: Basophils # (auto) 0.1 10 ^3/uL (0-0.2); Basophils % (auto) 0.7 % (0.0-2.0); Eosinophils # (auto) 0.3 10 ^3/uL (0-0.8); Hematocrit 33.4 % (41.0-53.0); Hemoglobin 11.7 g/dL (13.5-17.5); Lymphocytes # (auto) 2.2 10 ^3/uL (0.4-5.4); Lymphocytes % (auto) 24.3 % (10.0-50.0); Mean Corpuscular Volume 88.6 fL (80.0-100.0); Monocytes # (auto) 0.6 10 ^3/uL (0-1.3); Monocytes % (auto) 6.5 % (0.0-12.0); Neutrophils # (auto) 5.9 10 ^3/uL (1.6-8.6); Neutrophils % (auto) 65.5 % (37.0-80.0); Platelet Count (auto) 177 10^3/uL (140-450); Red Blood Cells 3.76 10^6/uL (4.5-5.90); Red Cell Distribution Width 13.3 % (11.8-14.3); White Blood Cell 9.1 10^3/uL (4.4-10.8)
[2020-03-20 20:20] LABS: Albumin 2.8 g/dL (3.4-5.0); Calcium 7.8 mg/dL (8.5-10.1); Magnesium 1.8 mg/dL (1.6-2.6); Potassium 3.1 mmol/L (3.5-5.1)
[2020-03-20 20:23] LABS: Bilirubin, Total 0.4 mg/dL (0.2-1.0); Total Protein 5.6 g/dL (6.4-8.2)
[2020-03-20] MEDS ORDERED: ENALAPRILAT 1.25 MG/ML-1ML VIAL IV PRN (20:30)
[2020-03-20 20:50] VITALS: BP 195/89
[2020-03-20] MEDS ORDERED: DEXTROSE (50%) 50ML SYRG IV PRN (21:30)
[2020-03-20] MEDS: METOPROLOL TARTRATE 25 MG TAB PO SCH (21:33)
[2020-03-20] MEDS: ATORVASTATIN 20 MG TAB PO SCH (21:33)
[2020-03-20] MEDS: cloNIDine HCL 0.1 MG TAB PO SCH (21:34)
[2020-03-20 22:00] VITALS: BP 195/89
[2020-03-20] MEDS: ACCU-CHEK COMFORT CURVE STRIP VI SCH (22:00)
[2020-03-20] MEDS: InsuLIN REG 1unit/0.01ml Soln (100units/ml) SC SCH (22:41)
[2020-03-21] VITALS (7 sets, daily range): BP systolic 136–193; BP diastolic 59–90
[2020-03-21] MEDS: ACCU-CHEK COMFORT CURVE STRIP VI SCH ×4 (06:15→21:09)
[2020-03-21] MEDS: InsuLIN REG 1unit/0.01ml Soln (100units/ml) SC SCH ×4 (06:20→21:09)
[2020-03-21] MEDS: METOPROLOL TARTRATE 25 MG TAB PO SCH (09:03)
[2020-03-21 09:31] LABS: Urine Bacteria NONE SEEN /hpf (None Seen); Urine Blood TRACE /uL (Negative); Urine Hyaline Cast FEW /lpf (0 - 2); Urine Specific Gravity 1.021 (1.001-1.035); Urine WBC 11 /hpf (0 - 3)
[2020-03-21 11:44] LABS: Alcohol, Urine < 3.0 mg/dL (0-10); Amphetamine Screen, Urine NEGATIVE (NEGATIVE); Barbiturate Scree,Urine NEGATIVE (NEGATIVE); Benzodiazephine Screen, Urine NEGATIVE (NEGATIVE); Cannabinoid Screen, Urine NEGATIVE (NEGATIVE); Cocaine Screen, Urine NEGATIVE (NEGATIVE); Opiate Scree,Urine NEGATIVE (NEGATIVE); Phencyclidine Screen, Urine NEGATIVE (NEGATIVE)
[2020-03-21] MEDS: ENOXAPARIN SOD 40 MG/0.4 ML SYRINGE SC SCH (11:44)
[2020-03-21] MEDS: cloNIDine HCL 0.1 MG TAB PO SCH ×2 (11:46→21:09)
[2020-03-21 12:14] LABS: Calcium 7.9 mg/dL (8.5-10.1); Potassium 3.1 mmol/L (3.5-5.1)
[2020-03-21 12:16] LABS: BUN/Creatinine Ratio 9.4
[2020-03-21] MEDS: LISINOPRIL 5 MG TAB PO SCH ×2 (13:06→22:38)
[2020-03-21] MEDS: ENALAPRILAT 1.25 MG/ML-1ML VIAL IV PRN (18:00)
[2020-03-21] MEDS ORDERED: amLODIPine BESYLATE 5 MG TAB PO ONE (19:15)
[2020-03-21] MEDS: ATORVASTATIN 20 MG TAB PO SCH (21:09)
[2020-03-21] MEDS: HYDROcodone-ACET 5/325MG TAB PO PRN (21:14)
[2020-03-22 05:30] VITALS: BP 155/69
[2020-03-22] MEDS: ACCU-CHEK COMFORT CURVE STRIP VI SCH ×4 (06:12→21:38)
[2020-03-22] MEDS: InsuLIN REG 1unit/0.01ml Soln (100units/ml) SC SCH ×4 (06:16→21:44)
[2020-03-22] MEDS: HYDROcodone-ACET 5/325MG TAB PO PRN ×2 (06:17→21:37)
[2020-03-22 07:06] LABS: Basophils # (auto) 0.1 10 ^3/uL (0-0.2); Basophils % (auto) 0.6 % (0.0-2.0); Eosinophils # (auto) 0.3 10 ^3/uL (0-0.8); Eosinophils % (auto) 3.6 % (0.0-7.0); Hematocrit 34.4 % (41.0-53.0); Lymphocytes % (auto) 21.6 % (10.0-50.0); Mean Corpuscular Hemoglobin 30.9 pg (28.0-32.0); Mean Corpuscular Hgb Conc. 34.9 g/dL (32.0-36.0); Mean Corpuscular Volume 88.4 fL (80.0-100.0); Monocytes # (auto) 0.7 10 ^3/uL (0-1.3); Neutrophils # (auto) 6.3 10 ^3/uL (1.6-8.6); Neutrophils % (auto) 67.2 % (37.0-80.0); Platelet Count (auto) 171 10^3/uL (140-450); Red Blood Cells 3.89 10^6/uL (4.5-5.90); White Blood Cell 9.3 10^3/uL (4.4-10.8)
[2020-03-22 07:35] LABS: BUN/Creatinine Ratio 12.5; Calcium 8.1 mg/dL (8.5-10.1); Magnesium 1.9 mg/dL (1.6-2.6); Potassium 3.3 mmol/L (3.5-5.1)
[2020-03-22] MEDS: METOPROLOL SUCCINATE XL 50 MG TAB PO SCH (09:20)
[2020-03-22] MEDS: amLODIPine BESYLATE 5 MG TAB PO SCH (09:23)
[2020-03-22] MEDS: ENOXAPARIN SOD 40 MG/0.4 ML SYRINGE SC SCH (09:24)
[2020-03-22] MEDS: cloNIDine HCL 0.1 MG TAB PO SCH ×2 (09:24→21:36)
[2020-03-22] MEDS: LISINOPRIL 5 MG TAB PO SCH ×2 (09:24→21:37)
[2020-03-22] MEDS: ENALAPRILAT 1.25 MG/ML-1ML VIAL IV PRN (16:38)
[2020-03-22 17:39] VITALS: BP 165/83
[2020-03-22] MEDS: ATORVASTATIN 20 MG TAB PO SCH (21:36)
[2020-03-22] MEDS: INSULIN LANTUS (GLARGINE) 1 /0.01ml (100units/ml) SC SCH (21:44)
[2020-03-22 22:00] VITALS: BP 192/77
[2020-03-23] VITALS (7 sets, daily range): BP systolic 159–190; BP diastolic 65–92
[2020-03-23] MEDS: HYDROcodone-ACET 5/325MG TAB PO PRN ×3 (01:44→21:25)
[2020-03-23] MEDS: ACCU-CHEK COMFORT CURVE STRIP VI SCH ×4 (05:20→21:26)
[2020-03-23] MEDS: InsuLIN REG 1unit/0.01ml Soln (100units/ml) SC SCH ×4 (05:29→21:32)
[2020-03-23] MEDS: INSULIN LANTUS (GLARGINE) 1 /0.01ml (100units/ml) SC SCH ×2 (05:30→21:33)
[2020-03-23 05:48] LABS: Calcium 8.2 mg/dL (8.5-10.1)
[2020-03-23 05:50] LABS: BUN/Creatinine Ratio 14.3
[2020-03-23] MEDS: amLODIPine BESYLATE 5 MG TAB PO SCH (09:41)
[2020-03-23] MEDS: LISINOPRIL 5 MG TAB PO SCH ×2 (09:42→21:26)
[2020-03-23] MEDS: ENOXAPARIN SOD 40 MG/0.4 ML SYRINGE SC SCH (09:43)
[2020-03-23] MEDS: cloNIDine HCL 0.1 MG TAB PO SCH ×2 (09:50→18:03)
[2020-03-23] MEDS: METOPROLOL SUCCINATE XL 50 MG TAB PO SCH (09:55)
[2020-03-23] MEDS ORDERED: POTASSIUM CHL 20 Meq TABLET PO ONE (14:30)
[2020-03-23] MEDS ORDERED: amLODIPine BESYLATE 5 MG TAB PO SCH (16:00)
[2020-03-23] MEDS: ENALAPRILAT 1.25 MG/ML-1ML VIAL IV PRN (16:58)
[2020-03-23] MEDS: ATORVASTATIN 20 MG TAB PO SCH (21:25)
[2020-03-24] MEDS: ACCU-CHEK COMFORT CURVE STRIP VI SCH ×4 (04:58→20:55)
[2020-03-24] MEDS: InsuLIN REG 1unit/0.01ml Soln (100units/ml) SC SCH ×4 (04:59→21:02)
[2020-03-24 05:00] VITALS: BP 143/59
[2020-03-24] MEDS: HYDROcodone-ACET 5/325MG TAB PO PRN ×3 (05:01→20:51)
[2020-03-24] MEDS: INSULIN LANTUS (GLARGINE) 1 /0.01ml (100units/ml) SC SCH ×2 (05:03→21:01)
[2020-03-24 07:26] LABS: Basophils # (auto) 0.1 10 ^3/uL (0-0.2); Basophils % (auto) 0.7 % (0.0-2.0); Eosinophils # (auto) 0.3 10 ^3/uL (0-0.8); Eosinophils % (auto) 4.6 % (0.0-7.0); Hematocrit 32.5 % (41.0-53.0); Hemoglobin 11.6 g/dL (13.5-17.5); Lymphocytes % (auto) 27.5 % (10.0-50.0); Mean Corpuscular Hemoglobin 31.2 pg (28.0-32.0); Mean Corpuscular Hgb Conc. 35.6 g/dL (32.0-36.0); Mean Corpuscular Volume 87.7 fL (80.0-100.0); Monocytes # (auto) 0.5 10 ^3/uL (0-1.3); Monocytes % (auto) 6.8 % (0.0-12.0); Neutrophils # (auto) 4.5 10 ^3/uL (1.6-8.6); Neutrophils % (auto) 60.4 % (37.0-80.0); Platelet Count (auto) 188 10^3/uL (140-450); Red Blood Cells 3.71 10^6/uL (4.5-5.90); Red Cell Distribution Width 13.3 % (11.8-14.3); White Blood Cell 7.4 10^3/uL (4.4-10.8)
[2020-03-24 07:40] LABS: Potassium 3.3 mmol/L (3.5-5.1)
[2020-03-24 07:48] LABS: BUN/Creatinine Ratio 18.3; Calcium 8.4 mg/dL (8.5-10.1); Magnesium 1.8 mg/dL (1.6-2.6)
[2020-03-24 08:50] VITALS: BP 148/72
[2020-03-24] MEDS: METOPROLOL SUCCINATE XL 50 MG TAB PO SCH (10:00)
[2020-03-24] MEDS: amLODIPine BESYLATE 5 MG TAB PO SCH (10:45)
[2020-03-24] MEDS: cloNIDine HCL 0.1 MG TAB PO SCH ×2 (10:46→20:55)
[2020-03-24] MEDS: ENOXAPARIN SOD 40 MG/0.4 ML SYRINGE SC SCH (10:47)
[2020-03-24] MEDS: LISINOPRIL 5 MG TAB PO SCH (10:47)
[2020-03-24 12:43] VITALS: BP 151/67
[2020-03-24] MEDS ORDERED: POTASSIUM CHL 20 Meq TABLET PO ONE (16:15)
[2020-03-24 16:50] VITALS: BP 155/74
[2020-03-24] MEDS: ATORVASTATIN 20 MG TAB PO SCH (20:50)
[2020-03-24 21:30] VITALS: BP 163/75
[2020-03-25 04:59] VITALS: BP 166/55
[2020-03-25] MEDS: ACCU-CHEK COMFORT CURVE STRIP VI SCH ×2 (05:53→11:30)
[2020-03-25] MEDS: InsuLIN REG 1unit/0.01ml Soln (100units/ml) SC SCH ×2 (05:53→11:30)
[2020-03-25] MEDS: HYDROcodone-ACET 5/325MG TAB PO PRN (05:55)
[2020-03-25] MEDS: INSULIN LANTUS (GLARGINE) 1 /0.01ml (100units/ml) SC SCH (05:57)
[2020-03-25 09:00] VITALS: BP 140/58
[2020-03-25] MEDS: METOPROLOL SUCCINATE XL 50 MG TAB PO SCH (10:00)
[2020-03-25] MEDS ORDERED: LOSARTAN POTASSIUM 25 MG TAB PO SCH (10:00)
[2020-03-25] MEDS: ENOXAPARIN SOD 40 MG/0.4 ML SYRINGE SC SCH (10:29)
[2020-03-25] MEDS: amLODIPine BESYLATE 5 MG TAB PO SCH (10:30)
[2020-03-25] MEDS: cloNIDine HCL 0.1 MG TAB PO SCH (10:31)
[2020-03-25 13:00] VITALS: BP 151/69
[2020-03-25] MEDS ORDERED: ASPI81CH43 PO (13:30)
== END 2020-03-25 14:45 | disposition home or self-care (01) | DRG 199 ==
LOC: ER 15:24 → TELE-WESTW 15:25
PROVIDERS: ADMIT Internal Medicine; ATTEND Internal Medicine
DX: I16.0 Hypertensive urgency (principal); N17.9 Acute kidney failure, unspecified; E11.65 Type 2 diabetes mellitus with hyperglycemia; I42.0 Dilated cardiomyopathy; I50.9 Heart failure, unspecified; E11.22 Type 2 diabetes mellitus with diabetic chronic kidney disease; Z20.828 Contact with and (suspected) exposure to other viral communicable diseases; N18.9 Chronic kidney disease, unspecified; I13.0 Hypertensive heart and chronic kidney disease with heart failure and stage 1 through stage 4 chronic kidney disease, or unspecified chronic kidney disease; Z96.642 Presence of left artificial hip joint; E87.6 Hypokalemia; E78.5 Hyperlipidemia, unspecified; F17.210 Nicotine dependence, cigarettes, uncomplicated; Z79.4 Long term (current) use of insulin; Z91.19 Patient's noncompliance with other medical treatment and regimen; Z59.0 Homelessness
CPT/HCPCS: 36415; 70450; 71045; 80048; 80053; 80307; 81001; 82010; 82962; 83036; 83735; 83880; 84484; 85025; 87426; 97163; 99291; G0378; J1815

== ENCOUNTER 2020-04-01 14:09 | Emergency (ER) | payer MEDICAID ==
[~2020-04-01] VITALS: Ht 177.8 cm; Wt 81.6 kg
[~2020-04-01 14:09] MED LIST changes: -ATOR20TA50 PO; -CAR3125T PO; -HYDR25TA4 PO; -IBUP800T24 PO; -INSU1INJ19 SC
[2020-04-01 14:52] LABS: Basophils # (auto) 0.1 10 ^3/uL (0-0.2); Basophils % (auto) 0.8 % (0.0-2.0); Eosinophils # (auto) 0.3 10 ^3/uL (0-0.8); Hematocrit 39.6 % (41.0-53.0); Hemoglobin 13.5 g/dL (13.5-17.5); Lymphocytes # (auto) 3.2 10 ^3/uL (0.4-5.4); Lymphocytes % (auto) 29.2 % (10.0-50.0); Mean Corpuscular Hemoglobin 30.8 pg (28.0-32.0); Mean Corpuscular Hgb Conc. 34.2 g/dL (32.0-36.0); Mean Corpuscular Volume 90.2 fL (80.0-100.0); Monocytes # (auto) 0.7 10 ^3/uL (0-1.3); Monocytes % (auto) 6.5 % (0.0-12.0); Neutrophils # (auto) 6.6 10 ^3/uL (1.6-8.6); Neutrophils % (auto) 60.5 % (37.0-80.0); Nucleated Red Blood Cells % 0.1 %; Platelet Count (auto) 278 10^3/uL (140-450); Red Blood Cells 4.39 10^6/uL (4.5-5.90); Red Cell Distribution Width 13.6 % (11.8-14.3); White Blood Cell 10.8 10^3/uL (4.4-10.8)
[2020-04-01 15:07] LABS: INR 0.95 (0.9-1.15); Partial Thromboplastin Time 23.8 sec (23.0-31.2)
[2020-04-01 15:13] LABS: Albumin 3.4 g/dL (3.4-5.0); Potassium 3.8 mmol/L (3.5-5.1)
[2020-04-01 15:15] LABS: BUN/Creatinine Ratio 13.4
[2020-04-01 15:17] LABS: Lactic Acid w/Reflex 2.5 mmol/L (0.4-2.0)
[2020-04-01 15:20] LABS: Bilirubin, Total 0.4 mg/dL (0.2-1.0); Total Protein 6.7 g/dL (6.4-8.2)
[2020-04-01 16:14] LABS: Amphetamine Screen, Urine POSITIVE (NEGATIVE); Barbiturate Scree,Urine NEGATIVE (NEGATIVE); Cannabinoid Screen, Urine POSITIVE (NEGATIVE); Cocaine Screen, Urine NEGATIVE (NEGATIVE)
[2020-04-01 16:21] LABS: Benzodiazephine Screen, Urine NEGATIVE (NEGATIVE); Opiate Scree,Urine NEGATIVE (NEGATIVE); Phencyclidine Screen, Urine NEGATIVE (NEGATIVE)
[2020-04-01 16:28] LABS: Urine Bacteria NONE SEEN /hpf (None Seen); Urine Blood Negative /uL (Negative); Urine Hyaline Cast FEW /lpf (0 - 2); Urine Specific Gravity 1.018 (1.001-1.035); Urine WBC 5 /hpf (0 - 3)
[2020-04-01] MEDS ORDERED: SODIUM CHLORIDE 0.9% 1,000 ML IV ONE (17:15)
[2020-04-01] MEDS ORDERED: cefTRIAXone 1GM/50ML D5W 50 ML IV ONE (18:00)
[2020-04-02 02:01] VITALS: BP 132/66
== END 2020-04-02 02:33 | disposition home or self-care (01) ==
LOC: ER 14:09
DX: R41.82 Altered mental status, unspecified (principal); E11.65 Type 2 diabetes mellitus with hyperglycemia; E11.21 Type 2 diabetes mellitus with diabetic nephropathy; N39.0 Urinary tract infection, site not specified; F15.10 Other stimulant abuse, uncomplicated; F12.10 Cannabis abuse, uncomplicated; I11.0 Hypertensive heart disease with heart failure; I50.9 Heart failure, unspecified
CPT/HCPCS: 36415; 51702; 70450; 71045; 80053; 80307; 80320; 81001; 83605; 84484; 85025; 85610; 85730; 87040; 93005; 96361; 96365; 99285; J0696; J7030